=== PATIENT | male | born 1990 | race Two or more races ===

== ENCOUNTER 2023-03-29 16:38 | Inpatient (IN) | payer MEDICAID ==
[~2023-03-29] VITALS: Ht 183.5 cm; Wt 127.0 kg
[2023-03-29] MEDS: KETOROLAC TROMETHAMINE 30 MG/ML VIAL IVP ONE (18:08)
[2023-03-29] MEDS: SODIUM CHLORIDE 0.9% 1,000 ML IV ONE (18:08)
[2023-03-29 18:28] LABS: BASOPHILS % (AUTO) 0.2 % (0.0-2.0); EOSINOPHILS % (AUTO) 0.8 % (1.0-6.0); LYMPHOCYTES # (AUTO) 1.4 K/uL (1.0-4.8); LYMPHOCYTES % (AUTO) 8.8 % (22.0-44.0); MEAN CORPUSCULAR HEMOGLOBIN 27.2 pg (26.0-34.0); MEAN CORPUSCULAR HGB CONC 32.7 G/dL (31.0-37.0); MEAN CORPUSCULAR VOLUME 83 fL (80-100); MONOCYTES # (AUTO) 0.8 K/uL (0.1-1.0); MONOCYTES % (AUTO) 4.8 % (2.0-9.0); NEUTROPHILS # (AUTO) 13.9 K/uL (1.8-7.7); PLATELET COUNT (AUTO) 246 K/uL (150-450); RED BLOOD CELL COUNT(AUTO) 5.16 MIL/uL (4.50-5.90); RED CELL DISTRIBUTION WIDTH 16.3 % (11.5-14.5); WHITE BLOOD COUNT (AUTO) 16.2 K/uL (4.5-11.0)
[2023-03-29 18:35] LABS: NEUTROPHILS % (AUTO) 85.4 % (40.0-70.0)
[2023-03-29 18:36] LABS: ANION GAP 11 mmol/L (8-16); CALCIUM, TOTAL 9.7 mg/dL (8.8-10.5); CARBON DIOXIDE 25 mmol/L (22-29); CHLORIDE 102 mmol/L (98-107); CREATININE 2.01 mg/dL (0.60-1.30); GLOMERULAR FILTR. RATE CALC 38 mL/min (>60); GLUCOSE,RANDOM 143 mg/dL (70-110); POTASSIUM 3.5 mmol/L (3.5-5.1); SODIUM SERUM 138 mmol/L (136-145); UREA NITROGEN, BLOOD 29 mg/dL (7-18)
[2023-03-29 18:43] LABS: TROPONIN I-HIGH SENSITIVITY 20 ng/L (<76)
[2023-03-29 18:46] LABS: B-TYPE NATRIURETIC PEPTIDE 10 pg/mL (0-100)
[2023-03-29 18:47] LABS: ALCOHOL, BLOOD (SERUM) < 3 mg/dL (0-10)
[2023-03-29 19:01] LABS: ALANINE AMINOTRANSFERASE 142 U/L (12-78); ALBUMIN 3.8 g/dL (3.4-5.0); ALKALINE PHOSPHATASE 126 U/L (46-116); ASPARTATE AMINOTRANSFERASE 179 U/L (15-37); BILIRUBIN,TOTAL 1.8 mg/dL (0.1-1.0); CREATINE KINASE, TOTAL ONLY 437 U/L (39-308); TOTAL PROTEIN, SERUM 7.4 g/dL (6.4-8.2)
[2023-03-29 19:55] LABS: LIPASE 2417 U/L (16-77)
[2023-03-29] MEDS: SODIUM CHLORIDE 0.9% 3,800 ML IV ONE (20:34)
[2023-03-29] MEDS: PIPERACILLIN/TAZO 3.375 GM/D5W 50 ML IV ONE (20:34)
[2023-03-29 20:57] LABS: APPEARANCE,URINE CLEAR (CLEAR); BILIRUBIN,URINE NEGATIVE (NEGATIVE); COLOR,URINE YELLOW (YELLOW); GLUCOSE, URINE (UA) NEGATIVE (NEGATIVE); KETONES,URINE NEGATIVE (NEGATIVE); LEUKOCYTE ESTERASE ,URINE NEGATIVE (NEGATIVE); NITRATE,URINE NEGATIVE (NEGATIVE); OCCULT BLOOD,URINE TRACE (NEGATIVE); PROTEIN,URINE 30-70 mg/dL (NEGATIVE); SPECIFIC GRAVITIY, URINE 1.016 (1.003-1.030)
[2023-03-29 21:01] LABS: ALCOHOL, URINE DRUG SCREEN NEGATIVE (NEGATIVE); AMPHET/METH SCREEN,URINE POSITIVE (NEGATIVE); BARBITURATE SCREEN, URINE NEGATIVE (NEGATIVE); BENZODIAZEPINES SCREEN,URINE NEGATIVE (NEGATIVE); CANNABINOID SCREEN,URINE NEGATIVE (NEGATIVE); COCAINE SCREEN,URINE NEGATIVE (NEGATIVE); METHADONE SCREEN, URINE NEGATIVE (NEGATIVE); OPIATE SCREEN,URINE NEGATIVE (NEGATIVE); PHENCYCLIDINE SCREEN,URINE NEGATIVE (NEGATIVE)
[2023-03-29 21:07] LABS: BACTERIA,URINE None Seen /HPF (None Seen); RBC,URINE 0-2 /HPF (0-2); WBC,URINE None Seen /HPF (0-5)
[2023-03-29 21:29] LABS: LACTIC ACID 1.7 mmol/L (0.4-2.0)
[2023-03-29] MEDS ORDERED: ZOLPIDEM TARTRATE 5 MG TABLET PO PRN (22:45)
[2023-03-29] MEDS: HYDROmorphone HCL 2 MG/ML SYRINGE IVP PRN (22:54)
[2023-03-29] MEDS: HEPARIN SODIUM,PORCINE 5,000 UNITS/ML VIAL SQ SCH (23:53)
[2023-03-30 03:50] VITALS: BP 155/95; PULSE 73; RESP 20; TEMP 97.7
[2023-03-30] MEDS: ONDANSETRON HCL 4 MG/2 ML VIAL IVP PRN (04:42)
[2023-03-30] MEDS: HYDROmorphone HCL 2 MG/ML SYRINGE IVP ONE (05:35)
[2023-03-30 07:41] LABS: BASOPHILS % (AUTO) 0.5 % (0.0-2.0); EOSINOPHILS % (AUTO) 0 % (1.0-6.0); HEMATOCRIT 46.9 % (41-53); HEMOGLOBIN 15.2 g/dL (13.5-17.5); LYMPHOCYTES # (AUTO) 0.8 K/uL (1.0-4.8); LYMPHOCYTES % (AUTO) 4.2 % (22.0-44.0); MEAN CORPUSCULAR HGB CONC 32.4 G/dL (31.0-37.0); MEAN CORPUSCULAR VOLUME 83 fL (80-100); MONOCYTES # (AUTO) 0.8 K/uL (0.1-1.0); MONOCYTES % (AUTO) 4.5 % (2.0-9.0); NEUTROPHILS # (AUTO) 17.1 K/uL (1.8-7.7); PLATELET COUNT (AUTO) 236 K/uL (150-450); RED BLOOD CELL COUNT(AUTO) 5.64 MIL/uL (4.50-5.90); RED CELL DISTRIBUTION WIDTH 16.4 % (11.5-14.5); WHITE BLOOD COUNT (AUTO) 18.8 K/uL (4.5-11.0)
[2023-03-30 07:43] LABS: CALCIUM, TOTAL 9.4 mg/dL (8.8-10.5); CREATININE 1.51 mg/dL (0.60-1.30); POTASSIUM 4.3 mmol/L (3.5-5.1)
[2023-03-30 08:06] LABS: NEUTROPHILS % (AUTO) 90.8 % (40.0-70.0)
[2023-03-30 08:39] VITALS: BP 156/103; PULSE 80; RESP 19; TEMP 98
[2023-03-30] MEDS ORDERED: ATENOLOL 25 MG TABLET PO SCH (09:00)
[2023-03-30] MEDS: PANTOPRAZOLE SODIUM 40 MG DR TABLET PO SCH (09:21)
[2023-03-30] MEDS: DOCUSATE SODIUM 100 MG CAPSULE PO SCH (09:21)
[2023-03-30] MEDS: HYDROmorphone HCL 2 MG/ML SYRINGE IVP PRN (10:25)
[2023-03-30] MEDS: SODIUM BICARBONATE 150 MEQ in SODIUM CHLORIDE 0.9% 1,000 ML IV SCH (11:25)
[2023-03-30 13:31] VITALS: BP 159/99; PULSE 80; RESP 21; TEMP 98.2
[2023-03-30] MEDS: ACETAMINOPHEN 325 MG TABLET PO PRN (14:16)
[2023-03-30 16:00] VITALS: BP 159/103; PULSE 89; RESP 21; TEMP 97.5
[2023-03-30 19:38] VITALS: BP 147/74; PULSE 92; RESP 20; TEMP 98.4
[2023-03-30] MEDS: MAGNESIUM HYDROXIDE SUSPENSION 30 ML UDCUP PO PRN (23:04)
[2023-03-31] MEDS: BISACODYL 10 MG RECTAL RECTAL SUPPOSITORY PR PRN (00:32)
[2023-03-31 00:43] VITALS: BP 168/97; PULSE 93; RESP 20; TEMP 98.2
[2023-03-31 04:47] VITALS: BP 185/90; PULSE 92; RESP 20; TEMP 98.7
[2023-03-31 07:30] LABS: BASOPHILS % (AUTO) 0.1 % (0.0-2.0); EOSINOPHILS % (AUTO) 0 % (1.0-6.0); HEMATOCRIT 43.1 % (41-53); HEMOGLOBIN 14.1 g/dL (13.5-17.5); LYMPHOCYTES # (AUTO) 0.8 K/uL (1.0-4.8); LYMPHOCYTES % (AUTO) 2.7 % (22.0-44.0); MEAN CORPUSCULAR HEMOGLOBIN 27.2 pg (26.0-34.0); MEAN CORPUSCULAR HGB CONC 32.7 G/dL (31.0-37.0); MEAN CORPUSCULAR VOLUME 83 fL (80-100); MONOCYTES # (AUTO) 1.6 K/uL (0.1-1.0); MONOCYTES % (AUTO) 5.6 % (2.0-9.0); NEUTROPHILS # (AUTO) 26.2 K/uL (1.8-7.7); PLATELET COUNT (AUTO) 208 K/uL (150-450); RED BLOOD CELL COUNT(AUTO) 5.19 MIL/uL (4.50-5.90); RED CELL DISTRIBUTION WIDTH 16.7 % (11.5-14.5); WHITE BLOOD COUNT (AUTO) 28.6 K/uL (4.5-11.0)
[2023-03-31 07:44] LABS: NEUTROPHILS % (AUTO) 91.6 % (40.0-70.0)
[2023-03-31] MEDS: AmLODIPine BESYLATE 10 MG TABLET PO SCH (07:56)
[2023-03-31 08:06] LABS: ALANINE AMINOTRANSFERASE 105 U/L (12-78); ALBUMIN 3.2 g/dL (3.4-5.0); ALKALINE PHOSPHATASE 112 U/L (46-116); ANION GAP 10 mmol/L (8-16); ASPARTATE AMINOTRANSFERASE 52 U/L (15-37); BILIRUBIN,TOTAL 0.8 mg/dL (0.1-1.0); CALCIUM, TOTAL 9.1 mg/dL (8.8-10.5); CARBON DIOXIDE 28 mmol/L (22-29); CHLORIDE 99 mmol/L (98-107); CREATININE 1.31 mg/dL (0.60-1.30); GLOMERULAR FILTR. RATE CALC > 60 mL/min (>60); GLUCOSE,RANDOM 72 mg/dL (70-110); POTASSIUM 4.1 mmol/L (3.5-5.1); SODIUM SERUM 137 mmol/L (136-145); TOTAL PROTEIN, SERUM 7.2 g/dL (6.4-8.2); UREA NITROGEN, BLOOD 23 mg/dL (7-18)
[2023-03-31 08:12] LABS: TROPONIN I-HIGH SENSITIVITY 13 ng/L (<76)
[2023-03-31 08:22] LABS: LIPASE 670 U/L (16-77)
[2023-03-31 08:25] VITALS: BP 156/82; PULSE 94; RESP 19; TEMP 98
[2023-03-31 11:55] VITALS: BP 158/100; PULSE 100; RESP 18; TEMP 98.7
[2023-03-31] MEDS: PIPERACILLIN/TAZO 3.375 GM/D5W 50 ML IV SCH (15:00)
[2023-03-31 15:42] VITALS: BP 155/101; PULSE 104; RESP 19; TEMP 98
[2023-03-31 16:34] LABS: APPEARANCE,URINE CLEAR (CLEAR); BILIRUBIN,URINE NEGATIVE (NEGATIVE); COLOR,URINE LIGHT YELLOW (YELLOW); GLUCOSE, URINE (UA) NEGATIVE (NEGATIVE); KETONES,URINE 40-60 mg/dL (NEGATIVE); LEUKOCYTE ESTERASE ,URINE NEGATIVE (NEGATIVE); NITRATE,URINE NEGATIVE (NEGATIVE); OCCULT BLOOD,URINE SMALL (NEGATIVE); PROTEIN,URINE 100-200,SEE CONFIRM mg/dL (NEGATIVE); SPECIFIC GRAVITIY, URINE 1.022 (1.003-1.030); UROBILINOGEN,URINE <=1.0 mg/dL (<=1.0)
[2023-03-31 17:00] LABS: SULFOSALICYLIC ACID,URINE 2+ (Negative)
[2023-03-31 17:01] LABS: RBC,URINE 0-2 /HPF (0-2)
[2023-03-31 17:02] LABS: BACTERIA,URINE None Seen /HPF (None Seen)
[2023-03-31 20:43] VITALS: BP 179/116; PULSE 107; RESP 20; TEMP 102.2
[2023-03-31 21:59] LABS: APPEARANCE,URINE CLEAR (CLEAR); BILIRUBIN,URINE NEGATIVE (NEGATIVE); COLOR,URINE LIGHT YELLOW (YELLOW); GLUCOSE, URINE (UA) NEGATIVE (NEGATIVE); KETONES,URINE 40-60 mg/dL (NEGATIVE); LEUKOCYTE ESTERASE ,URINE NEGATIVE (NEGATIVE); NITRATE,URINE NEGATIVE (NEGATIVE); OCCULT BLOOD,URINE SMALL (NEGATIVE); PH,URINE 7.5 (5.0-8.0); PROTEIN,URINE 100-200,SEE CONFIRM mg/dL (NEGATIVE); SPECIFIC GRAVITIY, URINE 1.026 (1.003-1.030); UROBILINOGEN,URINE <=1.0 mg/dL (<=1.0)
[2023-03-31 22:06] LABS: BACTERIA,URINE None Seen /HPF (None Seen); RBC,URINE 0-2 /HPF (0-2); SQUAMOUS EPITHELIAL CELL,UR None Seen /LPF (None Seen); WBC,URINE None Seen /HPF (0-5)
[2023-04-01 00:32] VITALS: BP 157/100; PULSE 105; RESP 22; TEMP 97.6
[2023-04-01 04:27] VITALS: BP 179/118; PULSE 103; RESP 20; TEMP 99.1
[2023-04-01] MEDS: HydrALAZINE HCL 20 MG/ML VIAL IVP PRN (04:49)
[2023-04-01 06:56] LABS: BASOPHILS % (AUTO) 0.2 % (0.0-2.0); EOSINOPHILS % (AUTO) 0 % (1.0-6.0); HEMATOCRIT 41.1 % (41-53); HEMOGLOBIN 13.5 g/dL (13.5-17.5); LYMPHOCYTES # (AUTO) 0.9 K/uL (1.0-4.8); LYMPHOCYTES % (AUTO) 3.8 % (22.0-44.0); MEAN CORPUSCULAR HEMOGLOBIN 27.6 pg (26.0-34.0); MEAN CORPUSCULAR VOLUME 84 fL (80-100); MONOCYTES # (AUTO) 1.4 K/uL (0.1-1.0); MONOCYTES % (AUTO) 5.8 % (2.0-9.0); NEUTROPHILS # (AUTO) 22.1 K/uL (1.8-7.7); PLATELET COUNT (AUTO) 186 K/uL (150-450); RED BLOOD CELL COUNT(AUTO) 4.91 MIL/uL (4.50-5.90); RED CELL DISTRIBUTION WIDTH 16.7 % (11.5-14.5); WHITE BLOOD COUNT (AUTO) 24.5 K/uL (4.5-11.0)
[2023-04-01 06:58] LABS: NEUTROPHILS % (AUTO) 90.2 % (40.0-70.0)
[2023-04-01 07:10] LABS: CREATININE 1.43 mg/dL (0.60-1.30); POTASSIUM 3.6 mmol/L (3.5-5.1)
[2023-04-01 07:38] LABS: THYROID STIMULATING HORMONE 0.2 uIU/mL (0.36-3.74)
[2023-04-01 08:04] VITALS: BP 169/99; PULSE 105; RESP 22; TEMP 97.8
[2023-04-01] MEDS: METOPROLOL TARTRATE 25 MG TABLET PO SCH (08:45)
[2023-04-01 09:08] LABS: RBC MORPHOLOGY COMMENT NORMAL RBC MORPH
[2023-04-01] MEDS: SODIUM CHLORIDE 0.9% 1,000 ML IV SCH (11:02)
[2023-04-01 11:44] VITALS: BP 160/96; PULSE 99; RESP 18; TEMP 98
[2023-04-01 12:05] VITALS: BP 155/92; RESP 18
[2023-04-01] MEDS ORDERED: HYDROmorphone HCL 2 MG/ML SYRINGE IVP PRN (12:15)
[2023-04-03 15:07] LABS: LEGIONELLA PNEUMO AG URINE Negative (Negative); S PNEUMO SOURCE Urine; STREP PNEUMONIAE AG URINE Negative (Negative)
== END 2023-04-01 13:30 | disposition left against medical advice (07) | DRG 282 ==
LOC: EMS 16:39 → 6S 03-30 00:45 → 5S 03-30 13:15
PROVIDERS: ADMIT Internal Medicine; ATTEND Internal Medicine
DX: K85.10 Biliary acute pancreatitis without necrosis or infection (principal); N17.0 Acute kidney failure with tubular necrosis; R65.11 Systemic inflammatory response syndrome (SIRS) of non-infectious origin with acute organ dysfunction; I10 Essential (primary) hypertension; R00.1 Bradycardia, unspecified; F11.10 Opioid abuse, uncomplicated; R30.0 Dysuria; Z53.29 Procedure and treatment not carried out because of patient's decision for other reasons; F15.10 Other stimulant abuse, uncomplicated; D72.829 Elevated white blood cell count, unspecified; K80.20 Calculus of gallbladder without cholecystitis without obstruction; Z87.891 Personal history of nicotine dependence; Z88.5 Allergy status to narcotic agent; N17.9 Acute kidney failure, unspecified
CPT/HCPCS: 71045; 74018; 74176; 76700; 80048; 80053; 80307; 81001; 81002; 82550; 83605; 83690; 83735; 83880; 84443; 84484; 85025; 87040; 87449; 87899; 93005; 93306; 99291; G0480; J0360; J1170; J1644; J1885; J2405; J2543; J3490; J7030; 36415-L1; 36415-TC